=== PATIENT | female | born 1945 | race Two or more races ===

== ENCOUNTER 2018-07-27 11:09 | Outpatient (CLI) | payer MEDICARE | END 2018-07-27 23:59 | disposition home or self-care (01) | LOC: NM 11:09 | DX: M19.011 Primary osteoarthritis, right shoulder (principal); M47.816 Spondylosis without myelopathy or radiculopathy, lumbar region; Z96.651 Presence of right artificial knee joint | CPT/HCPCS: 78315; A9503 ==